=== PATIENT | female | born 1985 | race Two or more races ===

== ENCOUNTER 2020-09-16 12:58 | Outpatient (CLI) | payer OTHER | END 2020-09-16 13:13 | disposition home or self-care (01) | LOC: RAD 12:58 → MAMO-SONO 13:15 | PROVIDERS: ATTEND Internal Medicine | DX: C81.01 Nodular lymphocyte predominant Hodgkin lymphoma, lymph nodes of head, face, and neck (principal); M50.11 Cervical disc disorder with radiculopathy, high cervical region ==

== ENCOUNTER 2021-02-26 19:55 | Emergency (ER) | payer OTHER ==
[~2021-02-26] VITALS: Ht 160 cm; Wt 79.4 kg
[2021-02-26] MEDS ORDERED: DICLOFENAC SODI75 MG PO (20:27)
== END 2021-02-26 20:46 | disposition home or self-care (01) ==
LOC: ER 19:55
DX: K13.79 Other lesions of oral mucosa (principal)